=== PATIENT | female | born 1960 | race Caucasian/White ===

== ENCOUNTER 2017-02-01 13:57 | Emergency (ER) | payer OTHER ==
--- NOTE | 2017-02-01 14:39 | DIAGNOSTIC IMAGING REPORT ---
PROCEDURE: XR CHEST 2 VIEW INDICATION: HEMOPTYSIS TECHNIQUE: PA and lateral views. COMPARISON: Chest 03/02/1959 FINDINGS: Left lower lobe infiltrate. Heart and mediastinum are normal. Thorax is normal. IMPRESSION: 1. Left lower lobe infiltrate
--- NOTE | 2017-02-01 17:07 | ED CLINICAL REPORT ---
Clinical Report - Physicians/Mid Levels [facility] [address] [place] [address] 02/01/2017 13:59 Patient: EVERARDO MARIN Time Seen: 1415; initial patient contact, initial documentation, patient care assumed. Arrived- By private vehicle. Historian- patient. HISTORY OF PRESENT ILLNESS Chief Complaint: COUGH and FEVER. This started about 1 weeks ago and is still present. The illness is described as moderate. The patient has had sputum production and a cough. No difficulty breathing, chest discomfort or pain or sore throat. No nasal congestion or discharge, sinus pressure, sinus drainage or ear pain. The patient has had fever (report 107). Additional history - No known contact with a sick individual. No recent travel. Similar symptoms previously: Recent medical care: Not recently seen/assessed. REVIEW OF SYSTEMS The patient has had a headache. No nausea, vomiting or diarrhea. All systems otherwise negative, except as recorded above. PAST HISTORY See nurses notes. PAST HISTORY See nurses notes. PROBLEMS: Lifestyle / Substance Problems. Atrial Fibrillation. HIV Illness. Bronchitis. Chronic Back Pain. Neck Pain. HIV positive. Abscess. --17:07 Pamela Howell R.N. ADDITIONAL SURGERIES: Breast Augmentation. Neck Surgery. --17:07 Pamela Howell R.N. SOCIAL HISTORY Light tobacco smoker. Occasional alcohol use. History of heavy IV drug use: heroin. Not exposed to second-hand smoke at home. No recent travel. Is a local resident. FAMILY HISTORY Negative. ADDITIONAL NOTES The nursing notes have been reviewed with agreement regarding the chief complaint, HPI, ROS, PMH and patient medications and allergies. PHYSICAL EXAM Vital Signs: 02/01/2017 14:15 BP: 120/85. HR: 60. RR: 20. O2 saturation: 96%. Temp: 98.8 F. Have been reviewed as normal and appear to be correct. Appearance: Alert. No acute distress. Anxious. Eyes: Pupils equal, round and reactive to light. Eyes normal inspection. ENT: Ears normal. Nose normal. Pharynx normal. Uvula midline. Neck: Normal inspection. Neck supple. CVS: Normal heart rate and rhythm. Heart sounds normal. Pulses normal. Respiratory: No respiratory distress. Breath sounds normal. Abdomen: Soft and nontender. No organomegaly. Back: Normal inspection. Skin: Skin warm and dry. Normal skin color. No rash. Normal skin turgor. Extremities: Extremities exhibit normal ROM. No lower extremity edema. Neuro: Oriented X 3. No motor deficit. No sensory deficit. LABS, X-RAYS, AND EKG Chest X-ray: Normal Chest X-Ray. (IMPRESSION: 1. Left lower lobe infiltrate Electronically Final signed by:Donell Laguna MD 02/01/2017 2:39:48 PM). The X-rays were interpreted by the radiologist and contemporaneously by me. Laboratory Tests: CBC w Diff: (NAYAN: 02/01/2017 14:50) ( [facility] [place] 15:21) Final results Test Result Flag Units (Reference) WHITE BLOOD COUNT 13.1 H K/uL (4.5-11.5) RED BLOOD COUNT 4.43 M/uL (4.00-5.20) HEMOGLOBIN 12.5 gm/dL (12.0-16.0) HEMATOCRIT 37.5 % (36.0-46.0) MEAN CELL VOLUME 85 fL (80-100) MEAN CORPUSCULAR HGB 28 pg (26-34) MEAN CORPUSCULAR HGB CONC 34 g/dL (31-37) RED CELL DISTRIBUTION WIDTH 14.5 % (11.6-14.8) PLATELET COUNT 272 K/uL (150-400) NEUTROPHIL % 80.0 H % (50-75) LYMPH % 10.6 L % (25-40) MONO % 9.2 % (3-14) EOSINOPHIL % 0 % (0-4) BASOPHIL % 0.2 % (0-2) CMP: (NAYAN: 02/01/2017 14:50) ( [facility] [place] 02/01/[place] 15:29) Final results Test Result Flag Units (Reference) GLUCOSE 97 mg/dL (70-110) BUN 15 mg/dL (7-18) CREATININE 0.8 mg/dL (0.6-1.3) Estimated GFR >60 mL/min Estimated GFR- >60 mL/min Note: Persistent reduction over 3 months in eGFR<60 mL/min/1.73 m2 defines CKD. Patients with eGFR values>=60 mL/min/1.73 m2 may also have CKD if evidence ofpersistent proteinuria. Additional information may be foundat www.kidney.org. SODIUM 132 L mmol/L (136-145) POTASSIUM 3.9 mmol/L (3.5-5.1) CHLORIDE 98 mmol/L (98-107) CARBON DIOXIDE 24 mmol/L (21-32) CALCIUM 8.7 mg/dL (8.5-10.1) TOTAL PROTEIN 7.4 g/dL (6.4-8.2) ALBUMIN 2.4 L g/dL (3.3-5.0) BILIRUBIN, TOTAL 0.5 mg/dL (0.0-1.0) ALKALINE PHOSPHATASE 101 U/L (46-116) AST (SGOT) 30 U/L (15-37) ALT (SGPT) 22 U/L (12-78) . PROGRESS AND PROCEDURES Course of Care: 14:26 02/01/17. pt has chidi with large amounts of narcs, xanax, morphine, oxycodone, and more, over 2700 pills, last rx filled 01/08 for xanax and 01/04 for morphone and oxy, see report for full details nurse reporting pt will not let him stick her for iv and is being uncooperative. Patient counseled in person regarding the patient's stable condition, test results and diagnosis. 16:18. Differential Diagnosis: Other possible considerations: substance abuse, flu, uri, lung ca, pneumonia, bronchitis, allergies. Above considerations are based on history, physical exam, reassessment, laboratory data and X-Ray data. Differential diagnosis was discussed with patient. Disposition: Discharged home in good and improved condition (17:07). Condition: good and stable. CLINICAL IMPRESSION 02/01/2017 15:28 BP: 108/64. HR: 72. RR: 20. O2 saturation: 95%. Temp: 98.7 F. Vital Signs: have been reviewed as normal and appear to be correct. Bacterial pneumonia. Vital signs recorded and reviewed; empiric antibiotics given in the ED and prescribed. No hypoxemia, respiratory failure or sepsis. INSTRUCTIONS Alternate Tylenol (Acetaminophen) and Motrin (Ibuprofen) for fever, temperature greater than 101 degrees orally. Take according to label instructions. Drink plenty of fluids. Warnings: GENERAL WARNINGS: Return or contact your physician immediately if your condition worsens or changes unexpectedly, if not improving as expected, or if other problems arise. Specifically return if problem worsens. Prescription Medications: Levaquin 500 mg: take 1 tablet orally every 24 hours for 10 days. No refills. Substitution is permissible. Follow-up: Follow up with your doctor in about three days even if well. Call for an appointment. Summary of care provided to patient. Understanding of the discharge instructions verbalized by patient. (Electronically signed by Cris Carranza A.R.N.P. 02/01/2017 17:52)
--- NOTE | 2017-02-01 17:07 | ED ORDER SUMMARY ---
..... Patient: EVERARDO MARIN OrderSheet [facility] VisitID: [id number] [place] [address] 56y, F Registration Date/Time: 02/01/2017 ORDER SHEET Weight: 58.9 kg (stated) Allergies: No Known Drug Allergy GENERAL ORDERS: Chest 2V Urgent (14:20 02/01/2017 HBivens A.R.N.P.) (Ack 14:22 IJurca ER Tech1) (14:42 GMarshall R.N.) CBC w Diff Urgent (14:21 02/01/2017 HBivens A.R.N.P.) (Ack 14:22 IJurca ER Tech1) (Sent 14:52 IJurca ER Tech1) (16:44 GMarshall R.N.) CMP Urgent (14:21 02/01/2017 HBivens A.R.N.P.) (Ack 14:22 IJurca ER Tech1) (Sent 14:52 IJurca ER Tech1) (16:44 GMarshall R.N.) MEDICATION ORDERS: Ceftriaxone IM 1 gm (NOW) (16:35 02/01/2017 HBivens A.R.N.P.) (Cancelled: Other16:43 HBivens A.R.N.P.) IV FLUIDS: IV NS : initial bolus 1000 mL (1000 mL/hr), then none - (NOW) (14:20 02/01/2017 HBivens A.R.N.P.) (14:45 GMarshall R.N.) IV Saline Lock (14:21 02/01/2017 HBivens A.R.N.P.) (14:44 GMarshall R.N.) Ceftriaxone IV 1 gm/50mL (NOW) (16:43 02/01/2017 HBivens A.R.N.P.) (16:45 GMarshall R.N.) ORDER SHEET NOTES: [Electronically signed by Naren Sanon R.N. (17:33 02/01/2017)] [Electronically signed by Cris Carranza.R.N.PPeter (17:52 02/01/2017)] [Electronically locked/signed by Naren Sanon R.N. (17:33 02/01/2017)]
--- NOTE | 2017-02-01 17:07 | ED ORDER SUMMARY ---
..... Patient: EVERARDO MARIN OrderSheet [facility] VisitID: [id number] [place] [address] 56y, F Registration Date/Time: 02/01/2017 ORDER SHEET Weight: 58.9 kg (stated) Allergies: No Known Drug Allergy GENERAL ORDERS: Chest 2V Urgent (14:20 02/01/2017 HBivens A.R.N.P.) (Ack 14:22 IJurca ER Tech1) (14:42 GMarshall R.N.) CBC w Diff Urgent (14:21 02/01/2017 HBivens A.R.N.P.) (Ack 14:22 IJurca ER Tech1) (Sent 14:52 IJurca ER Tech1) (16:44 GMarshall R.N.) CMP Urgent (14:21 02/01/2017 HBivens A.R.N.P.) (Ack 14:22 IJurca ER Tech1) (Sent 14:52 IJurca ER Tech1) (16:44 GMarshall R.N.) MEDICATION ORDERS: Ceftriaxone IM 1 gm (NOW) (16:35 02/01/2017 HBivens A.R.N.P.) (Cancelled: Other16:43 HBivens A.R.N.P.) IV FLUIDS: IV NS : initial bolus 1000 mL (1000 mL/hr), then none - (NOW) (14:20 02/01/2017 HBivens A.R.N.P.) (14:45 GMarshall R.N.) IV Saline Lock (14:21 02/01/2017 HBivens A.R.N.P.) (14:44 GMarshall R.N.) Ceftriaxone IV 1 gm/50mL (NOW) (16:43 02/01/2017 HBivens A.R.N.P.) (16:45 GMarshall R.N.) ORDER SHEET NOTES: [Electronically signed by Naren Sanon R.N. (17:33 02/01/2017)] [Electronically signed by Cris Carranza.R.N.PPeter (17:52 02/01/2017)] [Electronically locked/signed by Naren Sanon R.N. (17:33 02/01/2017)]
--- NOTE | 2017-02-01 17:07 | ED NURSING NOTES ---
Clinical Report - Nurses [facility] [address] [place] [address] 02/01/2017 13:59 Patient: EVERARDO MARIN TRIAGE Triage time 14:08. Alert. No acute distress. --14:16 Naren Sanon R.N. 14:15 02/01/17. BP: 120/85. HR: 60. RR: 20. O2 saturation: 96%. Temp: 98.8 F. Pain level now 07/30. --14:16 Naren Sanon R.N. Chief Complaint: FEVER and MUSCLE ACHES. --17:32 Naren Sanon R.N. Weight: 58.9 kg stated. Height/Length: 64 inches Per Patient. BMI: 22.3. --14:15 Naren Sanon R.N. Medications Morphine Sulfate ER Beads Oral 30mg bid . OxyCODONE HCl Oral 10 mg, 2x a day. --14:12 Naren Sanon R.N. Allergies No Known Drug Allergy. --14:12 Naren Sanon R.N. History Arrived by private vehicle. Historian: patient. Onset. (1 weeks ago). ( Patient HIV positive for 21 years. States has been sick for 7 days. 3 days ago had a temp of 107. States she believes she is dehydrated because her mouth is dry. Has cough and headache. States can't eat because her body hurts). Treatment LICENSED CLINICIAN: None. SOCIAL HX: Light tobacco smoker- less than 1/2 a pack per day. No alcohol use or drug use. NUTRITIONAL RISK ASSESSMENT: Deficiencies were identified during the nutritional risk assessment. FUNCTIONAL ASSESSMENT: Functional assessment performed: independent with the activities of daily living. --14:16 Naren Sanon R.N. Interventions ID band on patient. --14:16 Naren Sanon R.N. PHYSICAL ASSESSMENT GENERAL / NEURO / PSYCH: Alert. Oriented X 4. Appears in pain and anxious. HEENT: Pupils equal, round and reactive to light. No facial asymmetry noted. RESPIRATORY: Respirations not labored. Breath sounds within normal limits. CVS: Normal sinus rhythm noted. GI / : Abdomen soft and nontender. SKIN: Skin is warm and dry. --14:18 Naren Sanon R.N. NURSING PROGRESS NOTES Call light placed in reach. Bed placed in lowest position. --14:18 Naren Sanon R.N. 14:34 02/01/2017 Site #1 started via IV in the right wrist with an 20g angiocath; one attempt. Saline lock flushed with 10 mL saline. --14:44 Naren Sanon R.N. 14:40 02/01/2017 Started bag #1 1000 mL IV Fluids IV NS (Saline); bolus of 1000 mL over 1 hour(s) via site #1 --14:45 Naren Sanon R.N. 14:30. ( patient began howling when tourniquet was placed on her arm. IV was started without difficulty but patient insisted that I take tourniquet down immediately and so I was unable to draw blood. Lab notified that they will need to draw. Patient is indicating that she may want to leave without completing treatment, but has promised not to DC her own IV.). --14:48 Naren Sanon R.N. ( Patient calm now after blood draw). --14:57 Naren Sanon R.N. ( Welfare check on patient. Denies any needs at this time). --15:11 Naren Sanon R.N. 15:28 02/01/17. BP: 108/64. HR: 72. RR: 20. O2 saturation: 95%. Temp: 98.7 F. Pain level now 10/10. --15:29 Naren Sanon R.N. ( Patient sleeping. Awakened for vital sign check and patient began howling in pain. States pain is 10/10. Unable to state where she hurts. Just everywhere.). --15:29 Naren Sanon R.N. 15:30 02/01/2017 IV Fluids IV NS Discontinued: bag #1 infused. Total amount infused: 1000 mL. IV patency established. IV site checked: no pain, redness, or swelling. IV flushed thoroughly. --15:30 Naren Sanon R.N. 16:45 02/01/2017 Started 1 gm of Ceftriaxone IVPB in bag #1 50 mL; at 100 mL/hr over 30 minute(s) via site #1 --16:45 Naren Sanon R.N. 17:14 02/01/2017 Ceftriaxone IVPB Discontinued: bag #2 completed. Total amount infused: 50 mL. IV patency established. IV site checked: no pain, redness, or swelling. IV flushed thoroughly. --17:19 Naren Sanon R.N. 17:18 02/01/2017 Site #1 removed upon discharge. Catheter intact. Bandaid applied. --17:23 Naren Sanon R.N. Intake & Output IV fluids: 1000 mL. --15:31 Naren Sanon R.N. DISPOSITION / DISCHARGE Condition at departure: unchanged. No learning barriers present. Discharge instructions provided and reviewed with the patient. Patient verbalized understanding. Written instructions provided in Romansh. The patient was discharged by the nurse practitioner. She was accompanied by body engineer. --17:31 Naren Sanon R.N. 17:29 02/01/17. BP: 110/60. HR: 72. RR: 20. O2 saturation: 65%. Temp: 98.5 F. Pain level now 07/30. --17:31 Naren Sanon R.N. Locked/Released at 02/01/2017 17:33 by Naren Sanon R.N.
--- NOTE | 2017-02-01 17:07 | ED NURSING NOTES ---
Clinical Report - Nurses [facility] [address] [place] [address] 02/01/2017 13:59 Patient: EVERARDO MARIN TRIAGE Triage time 14:08. Alert. No acute distress. --14:16 Naren Sanon R.N. 14:15 02/01/17. BP: 120/85. HR: 60. RR: 20. O2 saturation: 96%. Temp: 98.8 F. Pain level now 07/30. --14:16 Naren Sanon R.N. Chief Complaint: FEVER and MUSCLE ACHES. --17:32 Naren Sanon R.N. Weight: 58.9 kg stated. Height/Length: 64 inches Per Patient. BMI: 22.3. --14:15 Naren Sanon R.N. Medications Morphine Sulfate ER Beads Oral 30mg bid . OxyCODONE HCl Oral 10 mg, 2x a day. --14:12 Naren Sanon R.N. Allergies No Known Drug Allergy. --14:12 Naren Sanon R.N. History Arrived by private vehicle. Historian: patient. Onset. (1 weeks ago). ( Patient HIV positive for 21 years. States has been sick for 7 days. 3 days ago had a temp of 107. States she believes she is dehydrated because her mouth is dry. Has cough and headache. States can't eat because her body hurts). Treatment ELECTRIC WIRER: None. SOCIAL HX: Light tobacco smoker- less than 1/2 a pack per day. No alcohol use or drug use. NUTRITIONAL RISK ASSESSMENT: Deficiencies were identified during the nutritional risk assessment. FUNCTIONAL ASSESSMENT: Functional assessment performed: independent with the activities of daily living. --14:16 aNren Sanon R.N. Interventions ID band on patient. --14:16 Naren Sanon R.N. PHYSICAL ASSESSMENT GENERAL / NEURO / PSYCH: Alert. Oriented X 4. Appears in pain and anxious. HEENT: Pupils equal, round and reactive to light. No facial asymmetry noted. RESPIRATORY: Respirations not labored. Breath sounds within normal limits. CVS: Normal sinus rhythm noted. GI / : Abdomen soft and nontender. SKIN: Skin is warm and dry. --14:18 Naren Sanon R.N. NURSING PROGRESS NOTES Call light placed in reach. Bed placed in lowest position. --14:18 Naren Sanon R.N. 14:34 02/01/2017 Site #1 started via IV in the right wrist with an 20g angiocath; one attempt. Saline lock flushed with 10 mL saline. --14:44 Naren Sanon R.N. 14:40 02/01/2017 Started bag #1 1000 mL IV Fluids IV NS (Saline); bolus of 1000 mL over 1 hour(s) via site #1 --14:45 Naren Sanon R.N. 14:30. ( patient began howling when tourniquet was placed on her arm. IV was started without difficulty but patient insisted that I take tourniquet down immediately and so I was unable to draw blood. Lab notified that they will need to draw. Patient is indicating that she may want to leave without completing treatment, but has promised not to DC her own IV.). --14:48 Naren Sanon R.N. ( Patient calm now after blood draw). --14:57 Naren Sanon R.N. ( Welfare check on patient. Denies any needs at this time). --15:11 Naren Sanon R.N. 15:28 02/01/17. BP: 108/64. HR: 72. RR: 20. O2 saturation: 95%. Temp: 98.7 F. Pain level now 10/10. --15:29 Naren Sanon R.N. ( Patient sleeping. Awakened for vital sign check and patient began howling in pain. States pain is 10/10. Unable to state where she hurts. Just everywhere.). --15:29 Naren Sanon R.N. 15:30 02/01/2017 IV Fluids IV NS Discontinued: bag #1 infused. Total amount infused: 1000 mL. IV patency established. IV site checked: no pain, redness, or swelling. IV flushed thoroughly. --15:30 Naren Sanon R.N. 16:45 02/01/2017 Started 1 gm of Ceftriaxone IVPB in bag #1 50 mL; at 100 mL/hr over 30 minute(s) via site #1 --16:45 Naren Sanon R.N. 17:14 02/01/2017 Ceftriaxone IVPB Discontinued: bag #2 completed. Total amount infused: 50 mL. IV patency established. IV site checked: no pain, redness, or swelling. IV flushed thoroughly. --17:19 Naren Sanon R.N. 17:18 02/01/2017 Site #1 removed upon discharge. Catheter intact. Bandaid applied. --17:23 Naren Sanon R.N. Intake & Output IV fluids: 1000 mL. --15:31 Naren Saonn R.N. DISPOSITION / DISCHARGE Condition at departure: unchanged. No learning barriers present. Discharge instructions provided and reviewed with the patient. Patient verbalized understanding. Written instructions provided in Bulgarian. The patient was discharged by the nurse practitioner. She was accompanied by acid strength inspector. --17:31 Naren Sanon R.N. 17:29 02/01/17. BP: 110/60. HR: 72. RR: 20. O2 saturation: 65%. Temp: 98.5 F. Pain level now 07/30. --17:31 Naren Sanon R.N. Locked/Released at 02/01/2017 17:33 by Naren Sanon R.N.
--- NOTE | 2017-02-01 17:52 | ED MED RECONCILIATION SUMMARY ---
Patient: EVERARDO MARIN Medication Reconciliation Report [facility] VisitID: [id number] [address] [place] [address] 56y, F Registration Date/Time: 02/01/2017 Weight: 58.9 kg Height/Length: 64 in. BMI: 22.3 ALLERGIES: No Known Drug Allergy The patient's Home Medications are listed below: THE FOLLOWING MEDICATIONS NEED TO BE RECONCILED: Morphine Sulfate ER Beads Oral 30mg bid OxyCODONE HCl Oral 10 mg, 2x a day The source(s) of the original Home Medication information: Not obtained. The following Medications were given to the patient in the Emergency Department: IV NS IV Fluids bolus 1000 mL over 1 hour(s), administered: 02/01/2017 2:40:00 PM Ceftriaxone [IVPB] IVPB bolus 0, then 1 gm 100 mL/hr, administered: 02/01/2017 4:45:00 PM The following Medications were prescribed to the patient: Levaquin 500 mg: take 1 tablet orally every 24 hours for 10 days. No refills. Substitution is permissible. -- Cris Carranza A.R.N.P.
--- NOTE | 2017-02-01 17:52 | ED MED RECONCILIATION SUMMARY ---
Patient: EVERARDO MARIN Medication Reconciliation Report [facility] VisitID: [id number] [address] [place] [address] 56y, F Registration Date/Time: 02/01/2017 Weight: 58.9 kg Height/Length: 64 in. BMI: 22.3 ALLERGIES: No Known Drug Allergy The patient's Home Medications are listed below: THE FOLLOWING MEDICATIONS NEED TO BE RECONCILED: Morphine Sulfate ER Beads Oral 30mg bid OxyCODONE HCl Oral 10 mg, 2x a day The source(s) of the original Home Medication information: Not obtained. The following Medications were given to the patient in the Emergency Department: IV NS IV Fluids bolus 1000 mL over 1 hour(s), administered: 02/01/2017 2:40:00 PM Ceftriaxone [IVPB] IVPB bolus 0, then 1 gm 100 mL/hr, administered: 02/01/2017 4:45:00 PM The following Medications were prescribed to the patient: Levaquin 500 mg: take 1 tablet orally every 24 hours for 10 days. No refills. Substitution is permissible. -- Cris Carranza A.R.N.P.
--- NOTE | 2017-02-01 17:52 | ED DISCHARGE INSTRUCTIONS ---
Patient: EVERARDO MARIN General Instructions [facility] VisitID: [id number] [place] [address] 56y, F Registration Date/Time: 02/01/2017 02/01/2017 15:28 BP: 108/64. HR: 72. RR: 20. O2 saturation: 95%. Temp: 98.7 F. Vital Signs: have been reviewed as normal and appear to be correct. Bacterial pneumonia. Vital signs recorded and reviewed; empiric antibiotics given in the ED and prescribed. No hypoxemia, respiratory failure or sepsis. INSTRUCTIONS Alternate Tylenol (Acetaminophen) and Motrin (Ibuprofen) for fever, temperature greater than 101 degrees orally. Take according to label instructions. Drink plenty of fluids. Warnings: GENERAL WARNINGS: Return or contact your physician immediately if your condition worsens or changes unexpectedly, if not improving as expected, or if other problems arise. Specifically return if problem worsens. Prescription Medications: Levaquin 500 mg: take 1 tablet orally every 24 hours for 10 days. No refills. Substitution is permissible. Follow-up: Follow up with your doctor in about three days even if well. Call for an appointment. Summary of care provided to patient. Understanding of the discharge instructions verbalized by patient. ADDITIONAL INFORMATION Pneumonia (Adult) Pneumonia is an infection deep within the lung, in the small air sacs (alveoli). It may be due to a virus or bacteria and is usually treated with an antibiotic. Severe cases require treatment in the hospital. Milder cases can be treated at home. Symptoms usually start to improve during the first2 days of treatment. Home Care: Rest at home for the first 23 days or until you feel stronger. When resuming activity, dont let yourself become overly tired. Avoid exposure to cigarette smoke (yours or others). You may use acetaminophen (Tylenol) or ibuprofen (Motrin, Advil) to control fever or pain, unless another medicine was prescribed. [NOTE: If you have chronic liver or kidney disease or ever had a stomach ulcer or GI bleeding, talk with your doctor before using these medicines.] (Aspirin should never be used in anyone under 18 years of age who is ill with a fever. It may cause severe liver damage.) Your appetite may be poor so a light diet is fine. Keep well hydrated by drinking 68 glasses of fluids per day (water, sport drinks such as Gatorade, sodas without caffeine, juices, tea, soup, etc.). This will help loosen secretions in the lung, making it easier for you to cough up the phlegm (sputum). If you also have heart or kidney disease, check with your doctor before you drink extra amounts of fluids. Finish all antibiotic medicine prescribed, even if you are feeling better after a few days. Follow Up with your doctor in the next 23 days (or as advised) to be sure you are responding properly to the medicine. [NOTE: If you are age 65 or older, or if you have chronic lung disease (asthma, emphysema or COPD), we recommendthe pneumococcal vaccination and a yearlyinfluenzavaccination(flu-shot) every . Ask your doctor about this.] Get Prompt Medical Attention if any of the following occur: Not getting better within the first 48 hours of treatment Increasing shortness of breath or rapid breathing (over 25 breaths/minute) Coughing up blood or increasing chest pain with breathing Fever of 100.4F (38C) oral or higher, not better with fever medication Increasing weakness, dizziness or fainting Increasing thirst or dry mouth Sinus pain, headache or a stiff neck Chest pain not caused by coughing Fever Control (Adult) A fever is a natural reaction of the body to an illness. In most cases, the temperature itself is not harmful. It actually helps the body fight infections. A fever does not need to be treated unless you feel very uncomfortable. Home Care If you feel warm, check your temperature. If you feel very uncomfortable and your temperature is at or higher than 100.4F (38C) oral, you may take acetaminophen (Tylenol) every 4 to 6 hours. If you cant take or keep down oral medicine, ask your pharmacist for Tylenol suppositories, which you can get without a prescription. If the fever does not respond to acetaminophen within 1 hour, take ibuprofen (Advil or Motrin). If this works, keep taking the ibuprofen every 6 to 8 hours. Note: If you have chronic liver or kidney disease or ever had a stomach ulcer or GI bleeding, talk with your doctor before using these medications. If either medication alone does not keep the fever down, you may alternate the two medicines every 3 to 4 hours, only if your healthcare provider has instructed you to do so. For example, take Motrin then wait 3 hours, take Tylenol then wait 3 hours, take Motrin, and so on. Follow your healthcare providers instructions exactly. Clothing: Keep clothing light because excess body heat is lost through the skin. The fever will go up if you wear extra layers or wrap in blankets. Fluids: Fever causes the body to lose water through evaporation. Drink plenty of fluids such as water, juice, clear sodas, meghan andrew, or lemonade. Do not use aspirin in anyone under 18 years of age who is ill with a fever. It can cause severe liver damage. Follow Up with your doctor or as advised by our staff if you do not get better after 48 hours. Get Prompt Medical Attention if any of the following occur: Fever does not get better after taking fever medication Fast or difficult breathing Earache, sinus pain, stiff or painful neck, headache, repeated diarrhea or vomiting You feel unusually irritable, drowsy, or confused A rash appears You feel weak or dizzy, or that you might faint Levofloxacin Oral tablet What is this medicine? LEVOFLOXACIN (martha guthrie) is a quinolone antibiotic. It is used to treat certain kinds of bacterial infections. It will not work for colds, flu, or other viral infections. How should I use this medicine? Take this medicine by mouth with a full glass of water. Follow the directions on the prescription label. This medicine can be taken with or without food. Take your medicine at regular intervals. Do not take your medicine more often than directed. Do not skip doses or stop your medicine early even if you feel better. Do not stop taking except on your doctor's advice. A special MedGuide will be given to you by the pharmacist with each prescription and refill. Be sure to read this information carefully each time. Talk to your collar fuser regarding the use of this medicine in children. While this drug may be prescribed for children as young as 6 months for selected conditions, precautions do apply. What side effects may I notice from receiving this medicine? Side effects that you should report to your doctor or health childbirth and infant care teacher as soon as possible: -allergic reactions like skin rash or hives, swelling of the face, lips, or tongue -changes in vision -confusion, nightmares or hallucinations -difficulty breathing -irregular heartbeat, chest pain -joint, muscle or tendon pain -pain or difficulty passing urine -persistent headache with or without blurred vision -redness, blistering, peeling or loosening of the skin, including inside the mouth -seizures -unusual pain, numbness, tingling, or weakness -vaginal irritation, discharge Side effects that usually do not require medical attention (report to your doctor or health childbirth and infant care teacher if they continue or are bothersome): -diarrhea -dry mouth -headache -stomach upset, nausea -trouble sleeping What may interact with this medicine? Do not take this medicine with any of the following medications: - arsenic trioxide - chloroquine - droperidol - medicines for irregular heart rhythm like amiodarone, disopyramide, dofetilide, flecainide, quinidine, procainamide, sotalol - some medicines for depression or mental problems like phenothiazines, pimozide, and ziprasidone This medicine may also interact with the following medications: - amoxapine -antacids - cisapride - dairy products - didanosine (ddI) buffered tablets or powder - haloperidol - multivitamins -NSAIDS, medicines for pain and inflammation, like ibuprofen or naproxen - retinoid products like tretinoin or isotretinoin - risperidone - some other antibiotics like clarithromycin or erythromycin - sucralfate - theophylline - warfarin What if I miss a dose? If you miss a dose, take it as soon as you remember. If it is almost time for your next dose, take only that dose. Do not take double or extra doses. Where should I keep my medicine? Keep out of the reach of children. Store at room temperature between 15 and 30 degrees C (59 and 86 degrees F). Keep in a tightly closed container. Throw away any unused medicine after the expiration date. What should I tell my health care provider before I take this medicine? They need to know if you have any of these conditions: cerebral disease irregular heartbeat kidney disease seizure disorder an unusual or allergic reaction to levofloxacin, other antibiotics or medicines, foods, dyes, or preservatives or trying to get breast-feeding What should I watch for while using this medicine? Tell your doctor or health childbirth and infant care teacher if your symptoms do not improve or if they get worse. Drink several glasses of water a day and cut down on drinks that contain caffeine. You must not get dehydrated while taking this medicine. You may get drowsy or dizzy. Do not drive, use machinery, or do anything that needs mental alertness until you know how this medicine affects you. Do not sit or stand up quickly, especially if you are an older patient. This reduces the risk of dizzy or fainting spells. This medicine can make you more sensitive to the sun. Keep out of the sun. If you cannot avoid being in the sun, wear protective clothing and use a sunscreen. Do not use sun lamps or tanning beds/booths. Contact your doctor if you get a sunburn. If you are a diabetic monitor your blood glucose carefully. If you get an unusual reading stop taking this medicine and call your doctor right away. Do not treat diarrhea with [id number] products. Contact your doctor if you have diarrhea that lasts more than 2 days or if the diarrhea is severe and watery. Avoid antacids, calcium, iron, and zinc products for 2 hours before and 2 hours after taking a dose of this medicine. You have been given the following additional information: Pneumonia (Adult) Fever Control (Adult) Levofloxacin Oral tablet (Electronically signed by Cris Carranza A.R.N.P. 02/01/2017 17:52)
--- NOTE | 2017-02-01 17:52 | ED MAR SUMMARY ---
..... Medication Administration Record [facility] [address] [place] [address] Patient: EVERARDO MARIN Visit ID: [id number] 56y, F Weight: 58.9 kg Height/Length: 64 in BMI: 22.3 ALLERGIES: No Known Drug Allergy Start 14:40 02/01/2017 Naren Sanon R.N., Stop 15:30 02/01/2017 Naren Sanon R.N. Medication Administered: IV NS (SALINE), Dose: IV Fluids, Bolus: 1000 mL over 1 hour(s), Dispensed: 1000 mL bag, Site: #1 right wrist. Medication Ordered: IV NS : initial bolus 1000 mL (1000 mL/hr), then none - (NOW). Start 16:45 02/01/2017 Naren Sanon R.N., Stop 17:14 02/01/2017 Naren Sanon R.N. Medication Administered: CEFTRIAXONE [IVPB], Dose: 1 gm IVPB over 30 minute(s), Rate: 100 mL/hr, Dispensed: 50 mL bag, Site: #1 right wrist. Medication Ordered: Ceftriaxone IV 1 gm/50mL (NOW).
--- NOTE | 2017-02-01 17:52 | ED MAR SUMMARY ---
..... Medication Administration Record [facility] [address] [place] [address] Patient: EVERARDO MARIN Visit ID: [id number] 56y, F Weight: 58.9 kg Height/Length: 64 in BMI: 22.3 ALLERGIES: No Known Drug Allergy Start 14:40 02/01/2017 Naren Sanon R.N., Stop 15:30 02/01/2017 Naren Sanon R.N. Medication Administered: IV NS (SALINE), Dose: IV Fluids, Bolus: 1000 mL over 1 hour(s), Dispensed: 1000 mL bag, Site: #1 right wrist. Medication Ordered: IV NS : initial bolus 1000 mL (1000 mL/hr), then none - (NOW). Start 16:45 02/01/2017 Naren Sanon R.N., Stop 17:14 02/01/2017 Naren aSnon R.N. Medication Administered: CEFTRIAXONE [IVPB], Dose: 1 gm IVPB over 30 minute(s), Rate: 100 mL/hr, Dispensed: 50 mL bag, Site: #1 right wrist. Medication Ordered: Ceftriaxone IV 1 gm/50mL (NOW).
== END 2017-02-01 17:31 | disposition home or self-care (01) ==
LOC: ED SRH 13:57
DX: J15.9 Unspecified bacterial pneumonia (principal); I48.91 Unspecified atrial fibrillation; F17.200 Nicotine dependence, unspecified, uncomplicated
CPT/HCPCS: 90074; 90100; 95059